=== PATIENT | male | born 1985 | race Two or more races ===

== ENCOUNTER 2016-06-14 09:46 | Emergency (ER) | payer MEDICAID ==
[~2016-06-14] VITALS: Ht 182.9 cm; Wt 98.0 kg
[2016-06-14 09:58] VITALS: BP 135/76
== END 2016-06-14 10:35 | disposition home or self-care (01) ==
LOC: ER 09:48
DX: H66.92 Otitis media, unspecified, left ear (principal); F10.20 Alcohol dependence, uncomplicated; F17.210 Nicotine dependence, cigarettes, uncomplicated
CPT/HCPCS: A4606; Z7502; Z7610

== ENCOUNTER 2017-05-27 10:22 | Emergency (ER) | payer MEDICAID ==
[~2017-05-27] VITALS: Ht 182.9 cm; Wt 98.0 kg
[2017-05-27 11:00] VITALS: BP 117/60
== END 2017-05-27 14:38 | disposition home or self-care (01) ==
LOC: ER 10:29
DX: S06.0X0A Concussion without loss of consciousness, initial encounter (principal); F17.200 Nicotine dependence, unspecified, uncomplicated; F12.10 Cannabis abuse, uncomplicated; W22.03XA Walked into furniture, initial encounter; Y93.B2 Activity, push-ups, pull-ups, sit-ups; Y92.89 Other specified places as the place of occurrence of the external cause; Y99.8 Other external cause status
CPT/HCPCS: 99281; 99406; A4606; Z7610; Z7502

== ENCOUNTER 2019-06-09 20:08 | Emergency (ER) | payer SELFPAY ==
[~2019-06-09] VITALS: Ht 182.9 cm; Wt 119.7 kg
[2019-06-09 20:11] VITALS: BP 132/48
--- NOTE | 2019-06-09 20:11 | NUR ---
PT BIB FAMILY AFTER ACCIDENTLY CRUSHING OXY AND SMOKING WITH MARIJUANA. FAMILY MEMBER NOTICED PATIENT BECOMING DROWSY AND PALE AND BROUGHT PT HERE. PT APPEARS TO BE DROWSY. PT ON MONITOR IN BED 5 WITH 2L NC. FAMILY AT BEDSIDE. WILL CONTINUE TO MONITOR.
--- NOTE | 2019-06-09 21:41 | NUR ---
PATIENT WANTS TO LEAVE. MD NOTIFIED. PT SIGNED AMA FORM.
--- NOTE | 2019-06-09 21:46 | NUR ---
Patient does not wish to proceed with medical care recommended by Dr. PANTOJA. Patient given information related to possible complications, up to and including , which could occur as a result of leaving the hospital at this time. Patient verbalizes understanding of risks involved due to leaving against medical advice. Patient has signed AMA form.
== END 2019-06-09 21:57 | disposition left against medical advice (07) ==
LOC: ER 20:08
DX: T40.601A Poisoning by unspecified narcotics, accidental (unintentional), initial encounter (principal); F10.10 Alcohol abuse, uncomplicated; F17.200 Nicotine dependence, unspecified, uncomplicated; E66.9 Obesity, unspecified; Y90.9 Presence of alcohol in blood, level not specified; Z68.35 Body mass index [BMI] 35.0-35.9, adult; Y92.89 Other specified places as the place of occurrence of the external cause

== ENCOUNTER 2023-11-20 03:08 | Emergency (ER) | payer OTHER ==
[~2023-11-20] VITALS: Ht 188 cm; Wt 113.4 kg
[2023-11-20 03:19] VITALS: TEMP 98.8
[2023-11-20] MEDS ORDERED: TDAP [DIPH/PERTUSSIS/TET] 0.5 ML VIAL IM ONE (04:06)
[2023-11-20] MEDS ORDERED: AMOX/CLAVULANATE 875 MG TABLET ONE (04:06)
[2023-11-20] MEDS: TDAP [DIPH/PERTUSSIS/TET] 0.5 ML VIAL IM ONE (04:11)
[2023-11-20] MEDS: AMOX/CLAVULANATE 875 MG TABLET PO ONE (04:11)
[2023-11-20] MEDS ORDERED: LIDOCAINE 1%-EPI 1:100,000 20 ML VIAL ONE (04:40)
[2023-11-20] MEDS: LIDOCAINE 1%-EPI 1:100,000 50 ML VIAL IJ ONE (04:54)
[2023-11-20] MEDS ORDERED: AMOX-430 PO (05:18)
[2023-11-20 05:39] VITALS: BP 129/77; O2SAT 98
== END 2023-11-20 05:39 | disposition home or self-care (01) ==
LOC: ER 03:09
DX: S01.81XA Laceration without foreign body of other part of head, initial encounter (principal); F17.200 Nicotine dependence, unspecified, uncomplicated; Y04.1XXA Assault by human bite, initial encounter; Y93.89 Activity, other specified; Y92.89 Other specified places as the place of occurrence of the external cause; Y99.8 Other external cause status
CPT/HCPCS: 12013; 90471; 90715; 99283; J3490